=== PATIENT | female | born 1990 | race Caucasian/White ===

== ENCOUNTER 2024-06-10 08:00 | Inpatient (IN) ==
[2024-06-10] MEDS ORDERED: OXYTOCIN 30 UNITS/NSS 30 UNITS/500 ML BAG IV PRN (08:15)
[2024-06-10] MEDS ORDERED: LIDOCAINE 1% LOCAL 20 ML VIAL INFIL PRN (08:15)
[2024-06-10 08:58] LABS: Hematocrit (blood only) 33.4 % (37.0-47.0); Hemoglobin 11.6 g/dl (12.0-16.0); Mean Corpuscular Hemoglobin 31.3 pg (25.0-34.0); Mean Corpuscular Hgb Conc 34.7 g/dL (32.0-36.0); Platelet Count 202 K/uL (130-400); RDW Coefficient of Variation 13.6 % (11.5-14.5); RDW Standard Deviation 44.4 fL (36.4-46.3); Red Blood Count 3.71 M/uL (4.20-5.40); White Blood Count 7.72 K/ul (4.8-10.8)
[2024-06-10] MEDS: LACTATED RINGER'S 1,000 ML IV PRN (09:13)
[2024-06-10] MEDS: OXYTOCIN 30 UNITS/NSS 30 UNITS/500 ML BAG IV PRN (09:22)
--- NOTE | 2024-06-10 09:24 | History & Physical Report ---
Date of Service June 10, 2024 Assessment & Plan (1) Encounter for supervision of normal first : Jessika Avila is a 33 y/o female currently at 40/3 WGA with an JAMES 06/08/23 as determined by LMP who is here for induction secondary to post dates. Her was complicated by advanced maternal age. Category 1 tracing; moderate FHT variability. No noted contractions on tocodynamometer. - Mckeon bulb placed - Will start Pitocin when mckeon bulb drops - Anesthesiology consulted for epidural if/when pt desires - Monitor labor progress Admission and Anticipated Discharge Date Admission Date: June 10, 2024 History of Present Illness Primary Care Provider: Aliyah Nichols DO Margarita is a 33 y/o female currently at 40/3 WGA with an JAMES 06/08/23 as determined by LMP who is here for induction secondary to post dates. Her was complicated by advanced maternal age. no contractions; regular movement; no fluid loss; no bloody show Had regular appointments with OB. H.6 (today) Hct: 33.4% (today) WBC: 7.72 (today) Plt: 202 (today) OB Labs: Blood Type A Positive 11/25/23 Antibody Screen NEGATIVE 11/25/23 Hgb 11.2 g/dl (12.0-16.0) L 03/26/24 Hct 32.7 % (37.0-47.0) L 03/26/24 MCV 84.5 fL (80.0-100.0) 11/25/23 Plt Count 262 K/uL (130-400) 11/25/23 Rubella IgG Antibody Immune (Immune) 11/25/23 Treponema pallidum Ab Negative (Negative) 03/26/24 Hep Bs Antigen Negative (Negative) 11/25/23 Hepatitis C Antibody Negative (Negative) 11/25/23 HIV 1&2 Ab/P24 Ag 4thGn Negative (Negative) 11/25/23 Glucose 1 Hr 50 gm 131 mg/dl (70-130) H 12/23/23 OB Optional Labs: Chlamydia trachomatis RNA Not Detected (NotDetected) 10/27/23 Neisseria gonorrhoeae RNA Not Detected (NotDetected) 10/27/23 Thyroid Stimulating Hormone (TSH) 1.38 uIU/mL (0.30-4.50) 07/29/19 Allergies Allergy/AdvReac Type Severity Reaction Status Date / Time No Known Allergies Allergy Verified 06/07/24 08:40 Home Medications Medication Instructions Recorded Confirmed Type loratadine-pseudoephedrine ER 10 1 tab PO DAILY 07/29/19 06/07/24 History mg-240 mg tablet,extended [id number] (Claritin-D 24 Hour) [id number] acid PO 05/21/23 06/07/24 History [ Multi] guaifenesin [Mucinex] PO PRN 05/10/24 06/07/24 History Patient History Medical History (Updated 06/10/24 @ 09:20 by Marla Vargas DO) Chicken pox Seasonal allergies Abnormal Pap smear of cervix Nonscarring hair loss History of broken nose Surgical History S/P nasal surgery x2 History of wisdom tooth extraction Family History Grandmother (Paternal) Breast cancer Alopecia Mother Breast cancer Hypothyroidism Anemia Father Hypertension Denies family history of Ovarian cancer Prostate cancer Diabetes Myocardial infarction Lung cancer Colorectal cancer Stroke Social History (Updated 10/21/23 @ 13:42 by Nora Rayn RN) Smoking Status: Never smoker Second Hand Exposure: No; Do You Dip or Chew Tobacco: No; Hx Alcohol Use: No Hx Substance Use: No Preferred Language: Bahamian Communication Ability: Effective Visual Impairment: Limited Hearing Ability: Normal Power Press Tender Required: No marital status: marital status details: Forrest Mae (36) [phone] Current Living Situation: Spouse Current Living Situation Comment: Lives with , 1 cat and 1 dog- FOB to change litter current occupational status: employed current occupation: Site Controller at [employer] Childhood Exposure to Second-Hand Smoke: No Diet: regular Diet Comment: increased veggies caffeine: Yes Dental Care, Regularly: Yes Physical Activity Frequency: 1-2 Times per Week Physical Activity Frequency Comment: walking or cycling class Seatbelt Use: always Sunscreen Use: Yes Do you think of yourself as: straight/heterosexual Review of Systems Denies fever, chills, sweats Denies shortness of breath, difficulty breathing, chest pain, palpitations, chest pressure. Denies breast pain. Denies dysuria. Denies headache or changes in vision. Physical Exam Physical Exam: General: Alert, oriented. No acute distress. Cardiac: Regular rate and rhythm, no murmurs/rubs/gallops. Respiratory: Clear to auscultation bilaterally a/p, no wheezes/rales/rhonchi. No increased work of breathing. Symmetrical chest rise. No respiratory distress. Abdomen: Gravid; Position: Vertex Pelvic: Dilation [address] Valentinette Lower Extremities: No lower extremity edema or swelling. No deep calf pain. Wild's negative bilaterally Results & Data Vital Signs (Past 12 Hours) Vital Signs Temp Pulse Resp BP 06/10/24 08:14 36.5 C 75 16 108/57 L Monitoring External Monitor External FHT and external uterine monitors used Resident Activity Tracking Resident Involvement: Resident Care Provided Care Provided: OB Delivery
[2024-06-11] MEDS ORDERED: LIDOCAINE 2% MPF LOCAL 5 ML VIAL EPI PRN (07:14)
[2024-06-11] MEDS ORDERED: NALOXONE HCL 0.4 MG/1 ML VIAL/CARP IV PRN (07:14)
[2024-06-11] MEDS ORDERED: ROPIVACAINE 0.5% PF 5 MG/ML 20 ML VIAL EPI PRN (07:14)
[2024-06-11] MEDS ORDERED: BUPIVACAINE 0.25% PF 30 ML VIAL EPI PRN (07:14)
[2024-06-11] MEDS ORDERED: SODIUM CHLORIDE 0.9% PF INJ 10 ML VIAL EPI PRN (07:14)
[2024-06-11] MEDS ORDERED: fentaNYL citrate PF 100 MCG/2 ML VIAL EPI PRN (07:14)
[2024-06-11] MEDS ORDERED: NALBUPHINE HCL INJ 10 MG/ML AMP IV PRN (07:14)
[2024-06-11] MEDS ORDERED: diphenhydrAMINE 50 MG/ML VIAL IV PRN (07:14)
[2024-06-11] MEDS ORDERED: NALOXONE HCL 1 MG in SODIUM CHLORIDE 0.9% 1,000 ML IV PRN (07:14)
[2024-06-11] MEDS ORDERED: ePHEDrine sulfate 50 MG/ML AMP IV PRN (07:14)
--- NOTE | 2024-06-11 07:18 | Anesthesiology Consultation ---
Date of Service June 11, 2024 Assessment & Plan Chart Review Chart Review: Patient NOT seen in Pre Admission Testing and Acceptable Risk for Labor Epidural Consults Requested none ASA ASA2 Proposed Anesthesia Anesthesia Type: Labor Epidural Risk / Benefits Reviewed With: PT / POA / Parent / Guardian, Accepts Plan and Informed Consent Obtained History Height/Weight Height: 5 ft 8 in Weight: 97.522 kg Allergies Allergy/AdvReac Type Severity Reaction Status Date / Time No Known Allergies Allergy Verified 06/10/24 11:52 Medications Home Medications Medication Instructions Recorded Confirmed Last Taken loratadine-pseudoephedrine ER 10 1 tab PO DAILY 07/29/19 06/10/24 Unknown mg-240 mg tablet,extended [id number] (Claritin-D 24 Hour) acetaminophen 325 mg capsule 325 mg PO QID PRN Pain, Mild 06/10/24 06/10/24 Unknown docusate sodium 100 mg capsule 100 mg PO DAILY 06/10/24 06/10/24 Unknown (Colace) famotidine 20 mg tablet (Pepcid) 20 mg PO DAILY 06/10/24 06/10/24 Unknown ferrous sulfate 325 mg (65 mg 325 mg PO DAILY 06/10/24 06/10/24 Unknown iron) tablet (iron) vits no.124-ferrous fum 1 tab PO DAILY 06/10/24 06/10/24 Unknown 27 mg iron-folic acid 800 mcg tablet ( Vitamin) Active Medications Generic Name Dose Route Start Last Admin Trade Name Freq PRN Reason Stop Dose Admin Oxytocin 30 units in 500 mls @ 17 mls/hr 06/10/24 08:15 06/11/24 06:00 Pitocin 30 Units/Nss IV 06/12/24 08:14 1.02 units/hr .Q24H PRN 17 mls/hr Labor Induction/Augmentation Titration Protocol 1.02 UNITS/HR Lactated Ringer's 1,000 mls @ 125 mls/hr 06/10/24 08:15 06/11/24 07:10 Lr IV 06/11/24 08:14 Infused .Q8H PRN Infusion L&D Protocol Protocol NPO Date Last Intake of Fluids: 06/11/24 Time Last Intake of Fluids: 07:00 Date Last Intake of Solids: 06/10/24 Time Last Intake of Solids: 20:00 Past Medical History Medical History Chicken pox Seasonal allergies Abnormal Pap smear of cervix Nonscarring hair loss History of broken nose Exercise / Class Metabolic Activity 1 > 8 Run/Swim/Ski/Tennis Past Family History Family History Grandmother (Paternal) Breast cancer Alopecia Mother Breast cancer Hypothyroidism Anemia Father Hypertension Denies family history of Ovarian cancer Prostate cancer Diabetes Myocardial infarction Lung cancer Colorectal cancer Stroke Past Surgical History Surgical History S/P nasal surgery x2 History of wisdom tooth extraction Past Anesthesia History No Hx of Anesthesia Complications and No Family Hx of Anesthesia Complications History of PONV No Hx of PONV and No Hx of Motion Sickness Social History Smoking Status: Never smoker Do You Dip or Chew Tobacco: No Hx Alcohol Use: No (social drinker) Alcohol type: beer, wine and hard liquor Hx Substance Use: No substance use type: does not use Review of Systems ROS Unobtainable: All systems reviewed & are unremarkable except as noted in HPI & below Physical Exam Vital Signs Last Vital Signs Temp 36.8 C 06/11/24 06:31 Pulse 77 06/11/24 07:10 Resp 18 06/11/24 02:23 BP 114/62 06/11/24 07:00 Pulse Ox 98 06/11/24 07:10 O2 Del Method Room Air 06/10/24 19:00 ENMT Mouth: no TMJ abnormality Thyromental Distance: > or= 3.5 Finger Breadths Mallampati Class: II Neck normal visual inspection and trachea midline; neck extension not limited Respiratory normal respiratory effort Auscultation: lungs clear to auscultation bilaterally Cardiovascular Rate/Rhythm: regular rate and regular rhythm Heart Sounds: no murmur Musculoskeletal Spine: normal cervical ROM Extremities: full ROM of extremities Neurologic moves all extremities Psychiatric Orientation: alert and oriented x 3 Testing Laboratory Results 06/10/24 08:33
[2024-06-11] MEDS: fentANYL 2 MCG/ML BUPIVacaine 0.125%-NSS 100ML BAG EPI PRN (07:26)
--- NOTE | 2024-06-11 07:30 | Communication Note ---
Date of Service: June 11, 2024 Physician update we have gone to 20 on Pitocin and the cervical Anders is fallen out she has now 3 cm 70% effaced we did do a reset of Pitocin to reset she receptors and patient is starting to feel more uncomfortable artificial rupture of membranes is performed for clear fluid patient getting increasingly more uncomfortable discussed slow progress at this stage but I do not think we have actually had her in full labor yet so advised patience and patient agrees discussed at length we will request epidural when she becomes more uncomfortable
[2024-06-11] MEDS: BUPIVACAINE 0.25% PF 30 ML VIAL ONE (07:34)
[2024-06-11] MEDS: fentaNYL citrate PF 100 MCG/2 ML VIAL ONE (07:34)
[2024-06-11] MEDS: ePHEDrine sulfate 50 MG/ML AMP ONE (07:35)
[2024-06-11] MEDS: SODIUM CHLORIDE 0.9% PF INJ 10 ML VIAL ONE (07:35)
[2024-06-11] MEDS: BUPIVACAINE 0.25% PF 30 ML VIAL EPI STA (07:35)
[2024-06-11] MEDS: LIDOCAINE 2%/EPINEPHRINE 1:200,000 20 ML PF ONE (07:35)
[2024-06-11] MEDS: fentANYL 2 MCG/ML BUPIVacaine 0.125%-NSS 100ML BAG ONE (07:35)
[2024-06-11] MEDS: fentaNYL citrate PF 100 MCG/2 ML VIAL EPI STA (07:35)
[2024-06-11] MEDS: SODIUM CHLORIDE 0.9% PF INJ 10 ML VIAL EPI STA (07:36)
[2024-06-11] MEDS: LIDOCAINE 2%/EPINEPHRINE 1:200,000 20 ML PF EPI STA (07:36)
[2024-06-11] MEDS: LACTATED RINGER'S 1,000 ML IV SCH (09:01)
[2024-06-11] MEDS ORDERED: HYDROCORTISONE ACETATE 25 MG SUPP PR PRN (17:41)
[2024-06-11] MEDS ORDERED: bisacodyL 10 MG SUPP PR PRN (17:41)
[2024-06-11] MEDS: miSOPROStoL 200 MCG TAB PR ONE (17:43)
--- NOTE | 2024-06-11 17:52 | Delivery Summary ---
Vaginal Delivery Summary Date of Service June 11, 2024 Vaginal Delivery Summary DIAGNOSES: 1. Alvarez intrauterine at 40w4d gestation. 2. Induction of Labor. 3. Group B Streptococcus Neg. PROCEDURE: Spontaneous vaginal delivery and repair of second degree laceration. SURGEON: Radha Albert MD. STORE PLANNER: None. QUANTITATIVE BLOOD LOSS: 430 mL. COMPLICATIONS: None. PLACENTA: Spontaneous and intact with a 3-vessel cord. DISPOSITION: Stable to labor and delivery. DESCRIPTION: The patient pushed well and brought the head to in OA position. The infant's head was allowed to deliver with contraction force and no further active pushing, with the perineum protected during this time. There was one loop of nuchal cord. The left shoulder was anterior. The shoulders and body delivered without any difficulty, and the infant was placed on the maternal abdomen. It was vigorous and moving all extremities, and making respiratory efforts. The cord was doubly clamped by the MD and then cut by the FOB. The placenta delivered spontaneously and was noted to be intact and with a 3VC. The cervix, vagina and perineum were examined and were found to have a second degre laceration which was repaired with vicryl suture in the usual man ner including a crown stitch to rebuild the perineal body. Brisk lochia occurred immediately after placenta delivery, and resolved quickly with fundal massage. Nevertheless, 1000mcg cytotec were placed rectally after patient was counseled on this medicine. The fundus was firm and lochia minimal immediately after delivery. [facility] Vaginal Delivery Charge Vaginal Delivery Codes: 67216 global code for the antepartum, delivery, and post-
[2024-06-11] MEDS: OXYTOCIN 30 UNITS/NSS 30 UNITS/500 ML BAG IV PRN (18:03)
--- NOTE | 2024-06-11 18:28 | Anesthesia Procedure Note ---
Date of Service June 11, 2024 Anesthesia Post Epidural Note Vital Signs Vital Signs: Temp Pulse Resp BP Pulse Ox O2 Del Method 36.8 C 63 18 120/59 L 99 Room Air 06/11/24 13:30 06/11/24 18:18 06/11/24 16:30 06/11/24 18:18 06/11/24 17:31 06/10/24 19:00 Pain Intensity Lower Abdomen: Pain Intensity: 3 Notes Mental Status: alert / awake / arousable and participated in evaluation Nausea / Vomiting: adequately controlled Pain: adequately controlled Airway Patency, RR, SpO2: stable & adequate BP & HR: stable & adequate Hydration State: stable & adequate Neuraxial Anesthesia: was administered and sensory block is resolving Anesthetic Complications: no major complications apparent Epidural: Removed without complications and With tip intact
[2024-06-11] MEDS: BENZOCAINE 20% SPRY 85 APPLN/85 GM CAN EXT PRN (18:45)
[2024-06-11] MEDS: DIPHTHER/TETAN/PERTUS Vaccine (Tdap, Adol/Adult) 0.5mL IM ONE (18:51)
[2024-06-11] MEDS: IBUPROFEN 600 MG TAB PO PRN (19:53)
[2024-06-11] MEDS: DOCUSATE SODIUM 100 MG CAP PO SCH (21:04)
--- NOTE | 2024-06-12 06:00 | Obstetrical Progress Note ---
Date of Service June 12, 2024 Assessment & Plan (1) Encounter for care and examination after delivery: (2) Encounter for supervision of elderly primigravida: Plan Pt is 33 yo post- day 1 s/p at 40+ weeks. complicated by AMA. - Encourage breast feeding and ambulation - Pain control with tylenol and ibuprofen - Likely Discharge 06/13 Admission and Anticipated Discharge Date Admission Date: June 10, 2024 Supervising Physician Co-Signing Physician Notes Resident Physician Supervision Note: I interviewed and examined the patient. Discussed with Dr. Vargas and agree with findings and plan as documented in the note. Any exceptions or clarifications are listed here: [ ] Documented By: Radha Albert MD, FACOG Subjective Pt is 33 yo post- day 1 s/p at 40+ weeks. complicated by AMA. Ambulation:In room Voiding:voiding normally Passing gas: no BM: no Diet tolerance:regular diet Lochia:bloody, no clots Feeding type: breast Current pain level: 3 /10 improved with ibuprofen Resting comfortably this morning in NAD. Denies SEN, CP, SOB, N/V/D, LE pain/swelling. Review of Systems Review of Systems: As per HPI Physical Exam Constitutional: WD/WN, vitals as above Respiratory: normal respiratory effort, lungs clear to auscultation Cardiovascular: RRR, no murmur, no edema Gastrointestinal (Abdomen): normal bowel sounds, soft, nontender, no hepatosplenomegaly Uterine fundus firm and at 1 cm below level of umbilicus Neurologic: PERRL, EOMI, accommodation nl, no face palsy, no dysarthria Moving all 4 extremities on command Psychiatric: A+Ox3, euthymic affect Results & Data Vital Signs (Past 12 Hours) Vital Signs Temp Pulse Pulse Resp BP BP O2 Del Method 06/12/24 03:36 36.7 C 74 16 112/67 Room Air 06/12/24 00:10 36.7 C 72 18 100/64 Room Air 06/11/24 20:24 36.9 C 60 18 111/68 Room Air 06/11/24 19:44 36.8 C 18 06/11/24 19:44 88 112/63 06/11/24 19:29 71 108/73 06/11/24 19:14 36.5 C 18 06/11/24 19:14 Room Air 06/11/24 19:14 81 115/62 06/11/24 18:44 20 06/11/24 18:44 65 113/66 06/11/24 18:29 18 06/11/24 18:29 105/59 L 06/11/24 18:18 63 120/59 L 06/11/24 18:14 18 06/11/24 18:14 184 H 146/92 H 06/11/24 17:59 18 06/11/24 17:59 75 129/83 Resident Activity Tracking Resident Involvement: Resident Care Provided Care Provided: OB Delivery
[2024-06-12 07:02] LABS: Hematocrit (blood only) 33.1 % (37.0-47.0); Hemoglobin 11.3 g/dl (12.0-16.0); Mean Corpuscular Hemoglobin 30.5 pg (25.0-34.0); Mean Corpuscular Hgb Conc 34.1 g/dL (32.0-36.0); Mean Corpuscular Volume 89.5 fL (80.0-100.0); Mean Platelet Volume 10.4 fL (9.4-12.4); Platelet Count 179 K/uL (130-400); RDW Coefficient of Variation 13.6 % (11.5-14.5); RDW Standard Deviation 44.3 fL (36.4-46.3); White Blood Count 13.46 K/ul (4.8-10.8)
[2024-06-12] MEDS: FAMOTIDINE 20 MG TAB PO SCH (08:44)
[2024-06-12] MEDS: PRENATAL VITAMIN 1 TAB PO SCH (08:44)
[2024-06-12] MEDS ORDERED: PRENATAL VITAMIN 1 TAB PO SCH (09:00)
[2024-06-12] MEDS: ACETAMINOPHEN 325 MG TAB PO PRN (16:45)
[2024-06-12] MEDS: bisacodyL 5 MG TABEC PO SCH (22:09)
[2024-06-13 03:11] VITALS: O2SAT 97
[2024-06-13 03:18] VITALS: BP 117/74; PULSE 74; RESP 16; TEMP 97.7
--- NOTE | 2024-06-13 07:40 | Obstetrical Progress Note ---
Date of Service June 13, 2024 Assessment & Plan (1) Encounter for care and examination after delivery: Plan Doing well. Plan d/c. INstructions reviewed. f/u in 6 weeks. Day #:: 2 Subjective Ambulation: ambulating normally Voiding: no voiding problems Passing Gas:: Yes Diet Tolerance:: regular diet Lochia:: Small Feeding Type:: breast feeding Physical Exam Constitutional WD/WN, vitals as above Respiratory normal respiratory effort, lungs clear to auscultation Cardiovascular RRR, no murmur, no edema Extremities: + edema (tr); no calf tenderness Gastrointestinal (Abdomen) soft, nt, nd Results & Data Vital Signs (Past 12 Hours) Vital Signs Temp Pulse Resp BP O2 Del Method 06/13/24 01:30 36.5 C 74 16 117/74 Room Air
[2024-06-13 07:54] LABS: Hematocrit (blood only) 34.9 % (37.0-47.0); Hemoglobin 11.9 g/dl (12.0-16.0)
== END 2024-06-13 10:05 | disposition home or self-care (01) | DRG 807 ==
LOC: 4S1 08:00 → 4E1 06-11 20:15